=== PATIENT | female | born 2005 | race Caucasian/White ===

== ENCOUNTER 2024-01-03 13:36 | Outpatient (RCR) | payer BC, SELFPAY | END 2024-04-24 12:00 | disposition home or self-care (01) | PROVIDERS: Visit Provider Surgery | DX: Z48.89 Encounter for other specified surgical aftercare (principal); M62.81 Muscle weakness (generalized); M25.571 Pain in right ankle and joints of right foot; Z51.89 Encounter for other specified aftercare | CPT/HCPCS: 97110; 97112; 97161 ==